=== PATIENT | male | born 1995 | race Caucasian/White ===

== ENCOUNTER 2016-08-31 22:56 | Emergency (ER) | payer BC ==
--- NOTE | 2016-08-31 23:34 | ERPHSYRPT ---
- History of Present Illness Time Seen by Provider: 08/31/16 23:22 Source: patient Exam Limitations: no limitations Patient Subjective Stated Complaint: PT STATES HE TOOK 90-120MG OF ADDERAL AT MIDNIGHT LAST NIGHT. STATES HE HAS BEEN HAVING PALPITATIONS AND RACING HEART SINCE. Triage Nursing Assessment: PT ALERT AND ORIENTED, ANSWERS QUESTIONS APPROP. PT AMBULATORY WITH STEADY GAIT NOTED. RESPIRATIONS NONLABORED WITH LUNGS CTA. PT RESTLESS IN BED. SINUS TACHYCARDIA AT 103 ON THE MONITOR. Physician History: This is a 21-year-old white male who arrives with complaint of having palpitations patient states that last night around midnight he took a total of 120 mg a 15 mg Adderall tablets He states he's been having episodes since all day long today with rapid heart rate heart rate going initially to 160 going down to 70 he states that around noon he had sharp pain in his anterior chest felt like he couldn't catch his breath he states that the pain lasted until 7:00 this evening He has not had any nausea no vomiting is not having pain at this time Past medical history is negative past surgical history is negative Social history positive alcohol use positive for occasional marijuana use occasional Adderall. Timing/Duration: today Severity: moderate Modifying Factors: Improves With: nothing Associated Symptoms: chest pain, No denies symptoms, No nausea, No vomiting, No abdominal pain, No shortness of breath, No heartburn, No cough, No chills, No fever, No headaches, No loss of appetite, No malaise, No rash, No syncope, No seizure, No weakness Allergies/Adverse Reactions: No Known Drug Allergies Allergy (Unverified 08/31/16 23:19) Home Medications: No Home Meds 1 [facility] UD 08/31/16 [History] Hx Tetanus, Diphtheria Vaccination/Date Given: Yes Hx Influenza Vaccination/Date Given: No Hx Pneumococcal Vaccination/Date Given: No Immunizations Up to Date: Yes - Review of Systems Constitutional: No Fever, No Chills Eyes: No Symptoms Ears, Nose, & Throat: No Symptoms Respiratory: Dyspnea, No Cough Cardiac: Chest Pain Abdominal/Gastrointestinal: No Abdominal Pain, No Nausea, No Vomiting, No Diarrhea Genitourinary Symptoms: No Dysuria Musculoskeletal: No Back Pain, No Neck Pain Skin: No Rash Neurological: No Dizziness, No Focal Weakness, No Sensory Changes Psychological: No Symptoms Endocrine: No Symptoms All Other Systems: Reviewed and Negative - Past Medical History Pertinent Past Medical History: Yes - Past Surgical History Past Surgical History: No - Social History Smoking Status: Current some day smoker How long have you smoked: 4 YRS Exposure to second hand smoke: Yes Drug Use: marijuana, other Patient Lives Alone: Yes - Nursing Vital Signs Nursing Vital Signs: Initial Vital Signs Temperature 97.5 F Temperature Source Oral Pulse Rate 103 Respiratory Rate 18 Blood Pressure [Right Arm] 158/86 Pain Intensity 4 - Physical Exam General Appearance: no apparent distress, alert Eye Exam: PERRL/EOMI, eyes nml inspection Ears, Nose, Throat Exam: normal ENT inspection, TMs normal, pharynx normal, moist mucous membranes Neck Exam: normal inspection, non-tender, supple, full range of motion Respiratory Exam: normal breath sounds, lungs clear, No respiratory distress Cardiovascular Exam: regular rate/rhythm, normal heart sounds, normal peripheral pulses Gastrointestinal/Abdomen Exam: soft, normal bowel sounds, No tenderness, No mass Back Exam: normal inspection, normal range of motion, No CVA tenderness, No vertebral tenderness Extremity Exam: normal inspection, normal range of motion, pelvis stable Neurologic Exam: alert, oriented x 3, cooperative, normal mood/affect, nml cerebellar function, nml station & gait, sensation nml, No motor deficits Skin Exam: normal color, warm, dry, No rash Lymphatic Exam: No adenopathy SpO2 Interpretation: normal (99%) SpO2: 99 Oxygen Delivery: Room Air - Course Nursing assessment & vital signs reviewed: Yes EKG Interpreted by Me: RATE (100 bpm), Sinus Rhythm, NORMAL AXIS, Other (EKG sinus rhythm 100 bpm normal axis, no acute ST or T wave changes normal EKG) Ordered Tests: Active Orders 24 hr Category Date Time Status EKG-ER Only STAT Care 08/31/16 23:27 Active IV Insertion STAT Care 08/31/16 23:29 Active ACETAMINOPHEN Stat Lab 08/31/16 23:42 Completed CBC W DIFF Stat Lab 08/31/16 23:42 Completed CK-Creatinine Phosphokinase Stat Lab 08/31/16 23:42 Completed CMP Stat Lab 08/31/16 23:42 Completed Ethyl Alcohol,Urine Stat Lab 08/31/16 00:33 Completed SALICYLATE Stat Lab 08/31/16 23:42 Completed TROPONIN Stat Lab 08/31/16 23:42 Completed UA Stat Lab 08/31/16 00:33 Completed Urine Triage Profile Stat Lab 08/31/16 00:33 Completed Medication Summary Discontinued Medications Generic Name Dose Route Start Last Admin Trade Name Tanner PRN Reason Stop Dose Admin Sodium Chloride 1,000 mls @ 999 mls/hr 08/31/16 23:37 08/31/16 23:57 Sodium Chloride 0.9% 1000 Ml IV 09/01/16 00:37 999 mls/hr .Q1H1M STA Administration Sodium Chloride Confirm 08/31/16 23:54 Sodium Chloride 0.9% 1000 Ml Administered 08/31/16 23:55 Dose 1,000 mls @ ud .ROUTE .STK-MED ONE Lab/Rad Data: Laboratory Result Diagrams 08/31/16 23:42 08/31/16 23:42 Laboratory Results 08/31/16 08/31/16 08/31/16 Range/Units 23:42 23:42 23:42 WBC 8.9 (4.0-10.5) K/mm3 RBC 5.30 (4.1-5.6) M/mm3 Hgb 16.7 (12.5-18.0) gm/dl Hct 46.7 (42-50) % MCV 88.1 (78-100) fl MCH 31.5 (26-32) pg MCHC 35.8 (32-36) g/dl RDW 12.6 (11.5-14.0) % Plt Count 313 (150-450) K/mm3 MPV 10.3 H (6-9.5) fl Gran % 70.5 H (36.0-66.0) % Lymphocytes % 18.1 L (24.0-44.0) % Monocytes % 10.1 (0.0-12.0) % Eosinophils % 1.0 (0.00-5.0) % Basophils % 0.3 (0.0-0.4) % Basophils # 0.03 (0-0.4) Sodium 143 (136-145) mEq/L Potassium 3.6 (3.5-5.1) mEq/L Chloride 106 (98-107) mEq/L Carbon Dioxide 26.7 (21-32) mEq/L Anion Gap 13.7 (5-15) MEQ/L BUN 9 (9-20) mg/dL Creatinine 1.06 (0.55-1.30) mg/dl Estimated GFR > 60 ML/MIN Glucose 118 H (70-110) MG/DL Calcium 8.9 (8.5-10.1) mg/dL Total Bilirubin 0.5 (0.2-1.0) mg/dL AST 20 (15-37) U/L ALT 24 (12-78) U/L Alkaline Phosphatase 72 (46-116) U/L Creatine Kinase 116 (39-308) U/L Troponin I < 0.017 (0.000-0.056) ng/ml Serum Total Protein 7.7 (6.4-8.2) gm/dL Albumin 4.7 (3.4-5.0) g/dL Ur Collection Type Urine Color (YELLOW) Urine Appearance (CLEAR) Urine pH (5-6) Ur Specific [place] (1.005-1.025) Urine Protein (Negative) Urine Glucose (UA) (NEGATIVE) mg/dL Urine Ketones (NEGATIVE) Urine Nitrite (NEGATIVE) Urine Bilirubin (NEGATIVE) Urine Urobilinogen (0-1) mg/dL Urine WBC (Auto) (NEGATIVE) Urine RBC (Auto) (0-5) Ignacio/ul Salicylates < 2.8 L (2.8-20.0) mg/dl Urine Opiates Level (NEGATIVE) Ur Methadone (NEGATIVE) Acetaminophen < 2.0 L (10-30) ug/ml Urine Barbiturates (NEGATIVE) Ur Phencyclidine (PCP) (NEGATIVE) Urine Amphetamine (NEGATIVE) U Benzodiazepine Level (NEGATIVE) Urine Cocaine (NEGATIVE) Urine Marijuana (THC) (NEGATIVE) Urine Ethyl Alcohol (0.00-20) mg/dl Specimen Received 08/31/16 08/31/16 08/31/16 Range/Units 00:33 00:33 00:33 WBC (4.0-10.5) K/mm3 RBC (4.1-5.6) M/mm3 Hgb (12.5-18.0) gm/dl Hct (42-50) % MCV (78-100) fl MCH (26-32) pg MCHC (32-36) g/dl RDW (11.5-14.0) % Plt Count (150-450) K/mm3 MPV (6-9.5) fl Gran % (36.0-66.0) % Lymphocytes % (24.0-44.0) % Monocytes % (0.0-12.0) % Eosinophils % (0.00-5.0) % Basophils % (0.0-0.4) % Basophils # (0-0.4) Sodium (136-145) mEq/L Potassium (3.5-5.1) mEq/L Chloride (98-107) mEq/L Carbon Dioxide (21-32) mEq/L Anion Gap (5-15) MEQ/L BUN (9-20) mg/dL Creatinine (0.55-1.30) mg/dl Estimated GFR ML/MIN Glucose (70-110) MG/DL Calcium (8.5-10.1) mg/dL Total Bilirubin (0.2-1.0) mg/dL AST (15-37) U/L ALT (12-78) U/L Alkaline Phosphatase (46-116) U/L Creatine Kinase (39-308) U/L Troponin I (0.000-0.056) ng/ml Serum Total Protein (6.4-8.2) gm/dL Albumin (3.4-5.0) g/dL Ur Collection Type VOID Urine Color YELLOW (YELLOW) Urine Appearance CLEAR (CLEAR) Urine pH 6.0 6.0 (5-6) Ur Specific [place] 1.010 (1.005-1.025) Urine Protein NEGATIVE (Negative) Urine Glucose (UA) NEGATIVE (NEGATIVE) mg/dL Urine Ketones NEGATIVE (NEGATIVE) Urine Nitrite NEGATIVE (NEGATIVE) Urine Bilirubin NEGATIVE (NEGATIVE) Urine Urobilinogen 0.2 (0-1) mg/dL Urine WBC (Auto) NEGATIVE (NEGATIVE) Urine RBC (Auto) NEGATIVE (0-5) Ignacio/ul Salicylates (2.8-20.0) mg/dl Urine Opiates Level NEG. (NEGATIVE) Ur Methadone NEG. (NEGATIVE) Acetaminophen (10-30) ug/ml Urine Barbiturates NEG. (NEGATIVE) Ur Phencyclidine (PCP) NEG. (NEGATIVE) Urine Amphetamine POS. (NEGATIVE) U Benzodiazepine Level NEG. (NEGATIVE) Urine Cocaine NEG. (NEGATIVE) Urine Marijuana (THC) NEG. (NEGATIVE) Urine Ethyl Alcohol < 3 (0.00-20) mg/dl Specimen Received 09/01/16 0035 - Progress Progress: improved Progress Note: 09/01/16 00:50 Patient is feeling better. EKG troponin and CK are all normal. Urine drug screen positive for amphetamines. Patient states his symptoms have gone away he did receive 1 L of normal saline heart rate is 93. Poison control was contacted by the patient's nurse they stated the patient could leave after symptom free. Patient is asking to be discharged. Will discharge. - Departure Time of Disposition: 00:51 Departure Disposition: Home Clinical Impression: Palpitations, Substance abuse Condition: Fair Critical Care Time: No Instructions: Drug Overdose in Adults Additional Instructions: Return home. Rest. Avoid further Adderall or any illicit substances. Plenty of fluids. Follow-up with your family doctor. Return for acute distress or for severe symptoms.
[2016-08-31] MEDS ORDERED: Sodium Chloride 0.9% 1000 ML 1,000 ML IV STA (23:37)
[2016-08-31 23:46] LABS: BASOPHIL % 0.3 % (0.0-0.4); Granulocytes % 70.5 % (36.0-66.0); Lymphocytes % 18.1 % (24.0-44.0); Mean Cell Volume 88.1 fl (78-100); Mean Corpuscular Hemoglobin 31.5 pg (26-32); Mean Platelet Volume 10.3 fl (6-9.5); Monocytes % 10.1 % (0.0-12.0); Platelet Count 313 K/mm3 (150-450); Red Cell Distribution Width 12.6 % (11.5-14.0); White Blood Count 8.9 K/mm3 (4.0-10.5)
[2016-08-31] MEDS ORDERED: Sodium Chloride 0.9% 1000 ML 1,000 ML ONE (23:54)
[2016-09-01 00:15] LABS: ALBUMIN 4.7 g/dL (3.4-5.0); ALKALINE PHOSPHATASE 72 U/L (46-116); ANION GAP 13.7 MEQ/L (5-15); BILIRUBIN,TOTAL 0.5 mg/dL (0.2-1.0); BLOOD UREA NITROGEN 9 mg/dL (9-20); CHLORIDE 106 mEq/L (98-107); Carbon Dioxide 26.7 mEq/L (21-32); Glucose 118 MG/DL (70-110); Potassium 3.6 mEq/L (3.5-5.1); SGOT/AST 20 U/L (15-37); SGPT/ALT 24 U/L (12-78); SODIUM 143 mEq/L (136-145); Total Protein 7.7 gm/dL (6.4-8.2)
[2016-09-01 00:21] LABS: ACETAMINOPHEN < 2.0 ug/ml (10-30); TROPONIN < 0.017 ng/ml (0.000-0.056)
[2016-09-01 00:38] LABS: COMPLETE URINE MICROSCOPIC? NO; Collection Type VOID
[2016-09-01 01:01] VITALS: BP 142/70; PULSE 84; O2SAT 100
== END 2016-09-01 01:01 | disposition home or self-care (01) ==
LOC: ED 22:56
DX: R00.2 Palpitations (principal); F19.10 Other psychoactive substance abuse, uncomplicated
CPT/HCPCS: 36000; 36415; 80053; 80307; 80320; 81002; 82550; 83986; 84484; 85025; 93005; 96360; 99285; G0481